=== PATIENT | male | born 1975 | race Hispanic/Latino ===

== ENCOUNTER 2016-09-05 10:37 | Outpatient (CLI) | payer OTHER ==
--- NOTE | 2016-09-05 11:19 | XRay Report ---
Cervical spine 4 views: History: Low back pain. Findings: Normal height of vertebral bodies and intervertebral disc. Normal articular surfaces. No fracture. Normal prevertebral soft tissue. Impression: No definite bony or articular abnormality cervical spine.
== END 2016-09-05 10:38 | disposition home or self-care (01) ==
LOC: SPVIMAG 10:37
PROVIDERS: ATTEND Family Medicine
DX: M54.5 Low back pain (principal)
CPT/HCPCS: 72050

== ENCOUNTER 2018-12-30 10:09 | Outpatient (CLI) | payer BC ==
--- NOTE | 2018-12-30 11:00 | Cat Scan Report ---
CT SINUSES WITHOUT CONTRAST HISTORY: Hypertrophy of nasal turbinates, chronic sinusitis COMPARISON: None. TECHNIQUE: Axial images of the sinuses were obtained. Coronal and sagittal reformats were generated. All CT scans at this location are performed using CT dose reduction for ALARA by means of automated exposure control. CONTRAST: None. FINDINGS: Nasal septum: The nasal septum deviates to the left side by approximately 7 mm. Paranasal sinuses: There is minimal mucosal thickening in the bilateral ethmoid air cells and inferio r right maxillary sinus. The remaining sinuses are adequately aerated. Turbinates: Tia bullosa of the left middle nasal turbinate measures up to 1.9 x 0.8 x 1.6 cm. The remaining turbinates are unremarkable. Ostiomeatal complex: Left ostiomeatal complex appears narrowed. The right ostiomeatal complex is with in normal limits. Visualized mastoid air cells: No significant abnormality. Visualized intracranial space: No significant abnormality. Visualized orbits: No significant abnormality. Additional findings: None. IMPRESSION: Tia bullosa of the left middle nasal turbinate. Minimal chronic mucosal thickening in the ethmoid air cells and inferior right maxillary sinus. Mild narrowing of the left ostiomeatal complex. The inferior nasal septum deviates to the left side by 7 mm. Signer Name: Neville Arriaga Jr, MD Signed: 12/30/2018 10:56 AM Workstation Name: [id number]
== END 2018-12-30 10:10 | disposition home or self-care (01) ==
LOC: CT 10:09
PROVIDERS: ATTEND Otolaryngology Otology & Neurotology
DX: J34.3 Hypertrophy of nasal turbinates (principal); J32.9 Chronic sinusitis, unspecified
CPT/HCPCS: 70486